=== PATIENT | male | born 1990 | race Caucasian/White ===

== ENCOUNTER 2020-06-30 11:01 | Emergency (ER) | payer SELFPAY ==
[2020-06-30 11:19] VITALS: BP 139/98; PULSE 91; RESP 16; TEMP 36.8; O2SAT 99; BMI 32.5
--- NOTE | 2020-06-30 11:26 | PC.NURSE ---
Patient initially presents with concerns of mites or bed bugs States he has bugs coming out of his eyes and tickling his eyes. With wax and drainage patient states he has carmichael stuff coming out of his skin and white bugs. Reports having this for extended period of time I need someone to help me take care of this problem. It isn't just my problem In speaking with patient he references having to embalm himself when he was 20 to rid himself of mites in the past Patient continues to go on about having every condition to cause , when I lay down at night I drown in more fluids than a 500lb man could make and I
[2020-06-30 11:39] LABS: Bacteria Urine None Seen; RBC Urine None Seen (0-5/HPF); WBC Urine None Seen (0-5/HPF)
[2020-06-30 11:42] LABS: Appearance Urine UA CLEAR; Bilirubin Urine UA NEGATIVE (NEGATIVE); Color Urine UA YELLOW; Glucose Urine UA NEGATIVE (Negative); Ketones Urine UA TRACE (NEGATIVE); Leukocyte Esterase Urine UA NEGATIVE (NEGATIVE); Nitrite Urine UA NEGATIVE (Negative); Occult Blood Urine UA NEGATIVE (Negative); Protein Urine UA NEGATIVE (Negative); Specific Gravity Urine UA >=1.030 (1.000-1.035); Urobilinogen Urine UA 0.2 E.U./dL (0.2); pH Urine UA 5.5 (4.5-8.0)
[2020-06-30 11:46] LABS: UR Morphine/Opiate cutoff 300 Negative (Negative); Ur Creatinine Normal (Normal); Ur Specific Gravity Normal (Normal); Urine Amphetamines Negative (Negative); Urine Barbiturates Negative (Negative); Urine Benzodiazepines Negative (Negative); Urine Cocaine Negative (Negative); Urine MDMA Negative (Negative); Urine Methadone Negative (Negative); Urine Methamphetamines Negative (Negative); Urine Oxycodone Negative (Negative); Urine Phencyclidine Negative (Negative); Urine Tetrahydrocannabinol Negative (Negative); Urine Tricyclic Antidepressant Negative (Negative); Urine pH Normal (Normal)
[2020-06-30 11:48] LABS: Culture Indicated Urine Cult Not Indicated; Mucus Urine 2+ (Negative)
--- NOTE | 2020-06-30 11:56 | PC.NURSE ---
Patient in room taking cleaning wipes. Advised patient not to use those on his skin, provided patient with skin cleaning wipes. why can't I use them, I use chemicals on my skin all the time
--- NOTE | 2020-06-30 11:57 | ED_ITS ---
HPI - Skin/Abscess/Foreign Bdy <MERARY GonzalezP - Last Filed: 06/30/20 14:25> General Chief complaint: Skin/Abscess/Foreign Body Stated complaint: bug bites several months Time Seen by Provider: 06/30/20 11:27 Source: patient Mode of arrival: Ambulatory Limitations: no limitations History of Present Illness HPI narrative: This is a 29-year-old male, nonsmoker, who has history of dianne izophrenia presents to ED with chief complain of mites all over his body and crawling out of his eyes and crusted eyelashes which has been many months and he has been using Nix. He reports has seen at other hospitals for same problems but seems as can't help his problems. Patient denies taking any other medications including for schizophrenia or behavior Health. He states he is healthy otherwise. He denies suicidal or homicidal ideation. He denies auditory or visual hallucinations. Patient reports he was told he has schizophrenia during teenage years when he was taking Spices. Related Data Previous Rx's Medication Instructions Recorded erythromycin 0.5 inch EYE-BOTH Q6H 5 Days #1 06/30/20 gram permethrin [Lice Treatment 30 ml TOP Q7D #118 ml 06/30/20 (permethrin)] Allergies Allergy/AdvReac Type Severity Reaction Status Date / Time No Known Drug Allergies Allergy Verified 06/30/20 11:23 Review of Systems <Rivera Coronado [facility] - Last Filed: 06/30/20 14:25> Review of Systems Narrative: General: Denies fever, chills, fatigue, malaise, sweats. HEENT: See HPI Respiratory: Denies dyspnea, cough, wheezing, hemoptysis, sputum. Cardiovascular: Denies chest pain, palpitations, orthopnea, edema. Gastrointestinal: Denies nausea, vomiting, abdominal pain, diarrhea, constipation, melena. : Denies dysuria, frequency, incontinence, hematuria, urinary retention. Musculoskeletal: Denies weakness, joint pain or bony pain. Skin: See HPI Neurologic: Denies weakness, headache, numbness, change in speech, confusion, seizures, incoordination. Psychiatric: No concerning psychosocial issues. 12-point review of systems is negative except for those stated above. Patient History <MERARY GonzalezP - Last Filed: 06/30/20 14:25> Medical History Anxiety (Acute) Bipolar 1 disorder (Acute) Depression (Acute) Schizophrenia (Acute) Social History Smoking Status: Never smoker Smoking Status: Never smoker Substance Use Type: marijuana Exam <REGINALDO Gonzalez - Last Filed: 06/30/20 14:25> Narrative Exam Narrative: General appearance: well developed, well nourished, in no acute distress. Head: normocephalic, atraumatic, no scalp lesions, non-tender. ENT: Hearing grossly intact. Nose without bleeding, purulent discharge, septal hematoma or deviation. Turbinate without erythema or swelling. Facial sinuses nontender to palpate. Mucous membrane moist, no mucosal lesion. Throat without erythema, tonsillar hypertrophy or exudate. Uvula in midline, airway patent. Mild light yellow bilateral dried eye discharge bilateral conjunctiva with mild injection. Neck/Thyroid: neck supple, full range of motion, no visible masses or meningeal signs. No JVD, non-tender without lymphadenopathy. Skin: Scattered papules on chest and posterior neck. No warmth, erythema, drainage, foreign bodies appreciated. Warm and dry and appropriate color for ethnicity. Heart: no clubbing, no cyanosis, no edema. S1 and S2 normal. RRR w/o murmurs, clicks, or bruits. Lungs: Breathing even and unlabored. No stridor. No accessory muscles used. Able to speak in full sentences. Chest: normal shape and expansion. Abdomen: non-obese, non-distended. Neurologic: alert and oriented. Cognitive exam, [employer] and PNS grossly intact on informal exam. Psych: good eye contact, normal affect. Initial Vital Signs Initial Vital Signs: Vital Signs Temperature 98.2 F 06/30/20 11:19 Pulse Rate 91 H 06/30/20 11:19 Respiratory Rate 16 06/30/20 11:19 Blood Pressure 139/98 H 06/30/20 11:19 Pulse Oximetry 99 06/30/20 11:19 <Lee Merino MD - Last Filed: 06/30/20 17:41> Initial Vital Signs Initial Vital Signs: Vital Signs Temperature 98.2 F 06/30/20 11:19 Pulse Rate 91 H 06/30/20 11:19 Respiratory Rate 16 06/30/20 11:19 Blood Pressure 139/98 H 06/30/20 11:19 Pulse Oximetry 99 06/30/20 11:19 Scores <MERARY GonzalezP - Last Filed: 06/30/20 14:25> GCS [place] coma scale eye opening: Spontaneous [place] coma scale verbal response: Orientated [place] coma scale motor response: Obey commands [place] coma scale total score: 15 Course <Rivera Coronado [facility] - Last Filed: 06/30/20 14:25> Orders Ordered: ED Orders 06/30/20 11:39 Urinalysis and Microscopic Stat Urine Drug Screen, Rapid Stat Discontinued Medications Erythromycin (Erythromycin Ophth Oint) 1 applic EYE-BOTH NOW ONE Stop: 06/30/20 11:52 Last Admin: 06/30/20 12:07 Dose: 1 applic Documented by: ANASTACIA Vital Signs Vital signs: Vital Signs - 8 hr 06/30/20 11:19 Temperature 98.2 F Pulse Rate 91 H Respiratory Rate 16 Blood Pressure 139/98 H Pulse Oximetry 99 <Lee Merino MD - Last Filed: 06/30/20 17:41> Orders Ordered: ED Orders 06/30/20 11:39 Urinalysis and Microscopic Stat Urine Drug Screen, Rapid Stat Discontinued Medications Erythromycin (Erythromycin Ophth Oint) 1 applic EYE-BOTH NOW ONE Stop: 06/30/20 11:52 Last Admin: 06/30/20 12:07 Dose: 1 applic Documented by: ANASTACIA Vital Signs Vital signs: Vital Signs - 8 hr 06/30/20 11:19 Temperature 98.2 F Pulse Rate 91 H Respiratory Rate 16 Blood Pressure 139/98 H Pulse Oximetry 99 MDM - Skin/Abscess/Foreign Bdy <[facility] - Last Filed: 06/30/20 14:25> Differential Diagnosis Differential diagnosis: Likely abscess of skin or subcutaneous tissue, herpes zoster, cellulitis, insect bites and other (Conjunctivitis) Medical Records Attestation: I reviewed the patient's medical records. Lab Data Labs: Lab Results 06/30/20 06/30/20 Range/Units 11:39 11:39 Urine Color Yellow Urine Appearance Clear Urine pH 5.5 (4.5-8.0) Ur Specific [place] >=1.030 H (1.000-1.035) Urine Protein Negative (Negative) Urine Glucose (UA) Negative (Negative) g/dL Urine Ketones Trace H (NEGATIVE) Urine Occult Blood Negative (Negative) Urine Nitrate Negative (Negative) Urine Bilirubin Negative (NEGATIVE) Urine Urobilinogen 0.2 (0.2) E.U./dL Ur Leukocyte Esterase Negative (NEGATIVE) Urine RBC None seen (0-5/HPF) Urine WBC None seen (0-5/HPF) Urine Bacteria None seen (None) Urine Mucus 2+ H (Negative) Ur Culture Indicated? Cult not indicated U Opiates 300ng/mL cut Negative (Negative) Ur Oxycodone Screen Negative (Negative) Urine Methadone Screen Negative (Negative) Ur Barbiturates Screen Negative (Negative) U Tricyclic Antidepress Negative (Negative) Ur Phencyclidine Scrn Negative (Negative) Ur Amphetamines Screen Negative (Negative) U Methamphetamines Scrn Negative (Negative) Ur MDMA Scrn (Ecstasy) Negative (Negative) U Benzodiazepines Scrn Negative (Negative) Urine Cocaine Screen Negative (Negative) U Marijuana (THC) Screen Negative (Negative) MDM Narrative Medical decision making narrative: This is a 29 year male who has history of schizophrenia and not currently taking medications presents to ED with mites infestation in his body including in his eyes. Patient's skin looks clean without signs of abscess or cellulitis. Mild scattered papules in anterior chest and posterior neck. Eye exam with mild injection in conjunctiva bilaterally with dried light yellow drainage. Patient administered erythromycin to treat conjunctivitis and advised not to touch his eyes and not to use Nix in eyes. Patient advised not to use Nix daily and to follow directions on the bottle. Patient provided with [facility] referral number since patient is not homicidal/suicidal and denies hallucination. Patient discharged to home with prescription of erythromycin and Permetherin and precautions. Return precautions were discussed with patient and patient verbalized understanding and agreement with the treatment plan. <Lee Merino MD - Last Filed: 06/30/20 17:41> Lab Data Labs: Lab Results 06/30/20 06/30/20 Range/Units 11:39 11:39 Urine Color Yellow Urine Appearance Clear Urine pH 5.5 (4.5-8.0) Ur Specific [place] >=1.030 H (1.000-1.035) Urine Protein Negative (Negative) Urine Glucose (UA) Negative (Negative) g/dL Urine Ketones Trace H (NEGATIVE) Urine Occult Blood Negative (Negative) Urine Nitrate Negative (Negative) Urine Bilirubin Negative (NEGATIVE) Urine Urobilinogen 0.2 (0.2) E.U./dL Ur Leukocyte Esterase Negative (NEGATIVE) Urine RBC None seen (0-5/HPF) Urine WBC None seen (0-5/HPF) Urine Bacteria None seen (None) Urine Mucus 2+ H (Negative) Ur Culture Indicated? Cult not indicated U Opiates 300ng/mL cut Negative (Negative) Ur Oxycodone Screen Negative (Negative) Urine Methadone Screen Negative (Negative) Ur Barbiturates Screen Negative (Negative) U Tricyclic Antidepress Negative (Negative) Ur Phencyclidine Scrn Negative (Negative) Ur Amphetamines Screen Negative (Negative) U Methamphetamines Scrn Negative (Negative) Ur MDMA Scrn (Ecstasy) Negative (Negative) U Benzodiazepines Scrn Negative (Negative) Urine Cocaine Screen Negative (Negative) U Marijuana (THC) Screen Negative (Negative) Discharge Plan Departure Patient Disposition: Home Clinical Impression: Conjunctivitis Qualifiers: Conjunctivitis type: unspecified Laterality: bilateral Qualified Code(s): H10.9 - Unspecified conjunctivitis Discharge Date/Time: 06/30/20 12:28 Instructions: DI for Conjunctivitis Activity Restrictions/Additional Instructions: You have been diagnosed with [conjunctivitis. The rash that you notice in her body does not appears to be from mites. Was not able to see mites at this time]. What to do: *Take your medications as directed. Please use erythromycin eye ointment 4 times a day every 6 hours for next 5 days. Please keep your hands clean and try not to rub your eyes. *Follow up with your primary care provider in 2-3 days, call for an appointment. Let them know you were seen in the ED and that we asked you to be seen in follow up. *Return to ED if you have any new, worsening, or concerning symptoms, such as [vision change, fever, chest pain, breathing difficulty, unable to tolerate fluids or any acute concerns]. Please follow directions of Permethrin and not to use daily or in mucous membrane. Please contact [facility] at [phone] for setting up primary care physician and behavioral/mental health provider. Address is [address] [place] [address]. [place] [address]. Prescriptions: New erythromycin 5 mg/gram (0.5 %) ointment 0.5 inch EYE-BOTH Q6H 5 Days Qty: 1 RF: 0 permethrin [Lice Treatment (permethrin)] 1 % liquid 30 ml TOP Q7D Qty: 118 RF: 0 <Lee Merino MD - Last Filed: 06/30/20 17:41> Cosign ED Attending Cosignature Attestation: I was immediately available in the department for consultation. This documentation has been reviewed and I agree with assessment and plan. Supervised by eLe Merino MD
[2020-06-30] MEDS: ERYTHROMYCIN OPHTH 1 GM OINT 1 APPLIC EYE-BOTH (12:07)
--- NOTE | 2020-06-30 12:13 | PC.NURSE ---
upon application of eye ointment patient expresses concern that this won't treat the mites. Explained this is to treat conjunctivitis of the eyes. Patient requesting to put on the suit and wear it for however long to get rid of the mites informed patient we do not have a suit to treat mites.
== END 2020-06-30 12:28 | disposition home or self-care (01) ==
PROVIDERS: Emergency Provider Nurse Practitioner Family
DX: H10.9 Unspecified conjunctivitis (principal)
CPT/HCPCS: 80305; 81001; 99282